=== PATIENT | female | born 1960 | race Caucasian/White ===

== ENCOUNTER → 2017-04-02 | Outpatient (CLI) | payer OTHER ==
--- NOTE | 2017-04-02 15:42 | REPMRS ---
Patient History The patient states she had a clinical breast exam in 04/05 Patient is postmenopausal. Family history of breast cancer in paternal aunt at age 50 or over. Took hormonal contraceptives for 10 years. Digital Woman Screen Mammo: April 02, 2017 - Exam #: [id number] Bilateral CC and MLO view(s) were taken. Technologist: Claudia Roa, Technologist Prior study comparison: March 31, 2016, digital woman screen mammo performed at [facility]. December 29, 2013, bilateral bilat screen digital mammo, performed at [facility] December 03, 2012, bilateral digital mammo screening bilat, performed at [facility]. FINDINGS: There are scattered fibroglandular densities. There has been no change in the appearance of the mammogram from the prior studies. There is a mild amount of scattered fibroglandular density which is fairly symmetric. There is no interval development of dominant mass, architectural distortion, or clustered microcalcification suggestive of malignancy. ASSESSMENT: BI-RADS/ACR category 1 mammogram. Negative. Recommendation Routine screening mammogram in 1 year (for women over age 40). This mammogram was interpreted with the aid of an FDA-approved computer-aided dectection system. Electronically Signed By: Jacob Carrera MD 04/02/17 [id number]
== END ==
LOC: M WHC 14:21
PROVIDERS: ATTEND Obstetrics & Gynecology
DX: Z12.31 Encounter for screening mammogram for malignant neoplasm of breast (principal); Z78.0 Asymptomatic menopausal state; Z92.0 Personal history of contraception

== ENCOUNTER → 2018-02-27 | Outpatient (CLI) | payer OTHER | LOC: M RAD 16:00 | DX: M79.662 Pain in left lower leg (principal) | CPT/HCPCS: 93971 ==

== ENCOUNTER → 2018-04-24 | Outpatient (CLI) | payer OTHER | LOC: M WHC 14:33 | DX: Z12.31 Encounter for screening mammogram for malignant neoplasm of breast (principal); N60.31 Fibrosclerosis of right breast; N60.32 Fibrosclerosis of left breast; Z13.820 Encounter for screening for osteoporosis; M85.851 Other specified disorders of bone density and structure, right thigh; M85.852 Other specified disorders of bone density and structure, left thigh; M85.88 Other specified disorders of bone density and structure, other site | CPT/HCPCS: 77067 ==

== ENCOUNTER → 2019-05-06 | Outpatient (CLI) | payer OTHER ==
--- NOTE | 2019-05-06 16:14 | REPMRS ---
Patient History The patient states she had a clinical breast exam in 03/2019. Family history of breast cancer at age 50 or over in paternal aunt. Took hormonal contraceptives for 10 years. 3D TOMOSYNTHESIS WAS PERFORMED. [facility] for [facility]%. Digital Woman Screen Mammo: May 06, 2019 - Exam #: [id number] Bilateral CC and MLO view(s) were taken. Technologist: Claudia Fields, Technologist Prior study comparison: April 24, 2018, bilateral digital woman screen mammo performed at [facility]. April 02, 2017, digital woman screen mammo performed at [facility]. FINDINGS: The breast tissue is heterogeneously dense. This may lower the sensitivity of mammography. There has been no change in the appearance of the mammogram from the prior studies. There is a moderate amount of residual fibroglandular tissue which is fairly symmetric. There is no interval development of dominant mass, areas of architectural distortion, or clustered microcalcification typical of malignancy. Assessment: BI-RADS/ACR category 1 mammogram. Negative Mammogram. Recommendation Routine screening mammogram in 1 year (for women over age 40). This mammogram was interpreted with the aid of an FDA-approved computer-aided dectection system. Electronically Signed By: Markus Avery MD 05/06/19 [id number]
== END ==
LOC: M WHC 15:36
PROVIDERS: ATTEND Obstetrics & Gynecology
DX: Z12.31 Encounter for screening mammogram for malignant neoplasm of breast (principal); Z80.3 Family history of malignant neoplasm of breast

== ENCOUNTER → 2020-05-31 | Outpatient (CLI) | payer OTHER ==
[~2020-05-31] MED LIST: CITA20TA6 PO; GNP1000C11 PO; ROSU20TA5 PO; VITA50005 PO
[2020-05-31 09:45] LABS: BASO % 0.2 % (0.0-1.0); EOS % 0.5 % (0.0-3.0); HEMATOCRIT 39.3 % (36.0-47.0); HEMOGLOBIN 12.6 g/dl (12.0-15.5); LYMPH # 1.4 10^3/uL (1.5-5.0); LYMPH % 16.4 % (24.0-44.0); MEAN CORPUSCULAR HEMOGLOBIN 30.7 pg (27.0-33.0); MEAN CORPUSCULAR HGB CONC 32.1 g/dl (32.0-36.5); MEAN CORPUSCULAR VOLUME 95.9 fl (80.0-96.0); MONO # 0.6 10^3/uL (0.0-0.8); NEUTROPHILS # 6.4 10^3/uL (1.5-8.5); NEUTROPHILS % 75.5 % (36.0-66.0); PLATELET COUNT, AUTOMATED 226 10^3/uL (150-450); WHITE BLOOD COUNT 8.4 10^3/uL (4.0-10.0)
--- NOTE | 2020-05-31 10:05 | ECGEPIP ---
[facility] Test Date: 2020-05-31 Pat Name: KANIKA MCDONNELL Department: Room: - Gender: Female [employer] Operator: KARINE : 1960 Requested By: Jeremias Gatica Order Number: [id number] Reading MD: Sylvia Herrera Measurements Intervals [place] Rate: 66 P: 16 SC: 135 QRS: 70 QRSD: 91 T: 59 QT: 374 QTc: 392 Interpretive Statements SINUS RHYTHM NONSPECIFIC st T-WAVE ABNORMALITY No prior Electronically Signed on 05-31-2020 10:05:23 EDT by Sylvia Herrera
[2020-05-31 10:14] LABS: ALBUMIN 3.7 GM/DL (3.2-5.2); ALT/SGPT 20 U/L (12-78); BILIRUBIN,TOTAL 0.3 MG/DL (0.2-1.0); BLOOD UREA NITROGEN 11 MG/DL (7-18); CALCIUM LEVEL 8.7 MG/DL (8.5-10.1); CARBON DIOXIDE LEVEL 28 MEQ/L (21-32); CHLORIDE LEVEL 107 MEQ/L (98-107); CREATININE FOR GFR 0.59 MG/DL (0.55-1.30); GLOMERULAR FILTRATION RATE > 60.0 (>51); GLUCOSE, FASTING 92 MG/DL (70-100); POTASSIUM SERUM 3.8 MEQ/L (3.5-5.1); SODIUM LEVEL 142 MEQ/L (136-145); TOTAL PROTEIN 7.3 GM/DL (6.4-8.2)
== END ==
LOC: M LAB 08:43
PROVIDERS: ATTEND Podiatrist
DX: Z01.818 Encounter for other preprocedural examination (principal); M20.11 Hallux valgus (acquired), right foot; M79.671 Pain in right foot; R94.31 Abnormal electrocardiogram [ECG] [EKG]

== ENCOUNTER → 2020-06-06 | Outpatient (CLI) | payer OTHER | LOC: M LABSMTC 10:08 | PROVIDERS: ATTEND Anesthesiology | DX: Z01.812 Encounter for preprocedural laboratory examination (principal); Z20.828 Contact with and (suspected) exposure to other viral communicable diseases | CPT/HCPCS: C9803; U0003 ==

== ENCOUNTER 2020-06-11 08:05 | Day surgery (SDC) | payer OTHER ==
[~2020-06-11] VITALS: Ht 162.6 cm; Wt 69.3 kg
[~2020-06-11 08:05] MED LIST changes: -GNP1000C11 PO; +LR 1,000 ML IV ONE; +ceFAZolin SOD 2 GM in IV 1 EA IV ONE
[2020-06-11] MEDS ORDERED: GNP1000C11 PO (09:17)
[2020-06-11] MEDS ORDERED: propofoL 200 MG/20 ML VIAL As Ordered ONE (09:38)
[2020-06-11] MEDS ORDERED: ONDANSETRON 4MG/2ML VIAL As Ordered ONE (09:38)
[2020-06-11] MEDS ORDERED: LIDOCAINE 2% 100MG/5ML SDV (FOR ANES.) As Ordered ONE (09:38)
[2020-06-11] MEDS ORDERED: MIDAZOLAM INJ 2MG/2ML VIAL (J2250 PER 1MG) As Ordered ONE (09:38)
[2020-06-11] MEDS ORDERED: dexameTHASONE 4 MG/ML 1ML VIAL (J1100 PER 1MG) As Ordered ONE ×2 (09:38→10:04)
[2020-06-11] MEDS ORDERED: fentaNYL 100 MCG/2 ML INJECTION (J3010) As Ordered ONE (09:38)
[2020-06-11] MEDS ORDERED: BACITRACIN PWD 50,000 UNITS VIAL As Ordered ONE (10:04)
[2020-06-11] MEDS ORDERED: LIDOCAINE 2% MDV 20ML VIAL As Ordered ONE (10:04)
[2020-06-11] MEDS ORDERED: BUPIVACAINE HCL 0.5% 30 ML VIAL As Ordered ONE (10:04)
[2020-06-11] MEDS ORDERED: NEOSPORIN GU IRRIG 20 ML VIAL As Ordered ONE (10:04)
[2020-06-11] MEDS ORDERED: KETAMINE HCL 200 MG/20 ML VIAL As Ordered ONE (10:27)
[2020-06-11] MEDS ORDERED: ePHEDrine SULFATE 25 MG/5 ML(5MG/ML) SYRINGE As Ordered ONE (10:41)
[2020-06-11] MEDS ORDERED: ACETAMINOPHEN 1000MG 100ML IV BTL (OFIRMEV) (J0131 PER 10MG) As Ordered ONE (10:47)
[2020-06-11] MEDS ORDERED: KETOROLAC 60MG 2ML VIAL As Ordered ONE (11:29)
[2020-06-11 12:35] VITALS: BP 109/56
--- NOTE | 2020-06-11 12:38 | REP ---
INDICATION: POST OP FOOT CORAL / VIKTOR BUNIONECTOMY ADV RECOVERY RM 5 COMPARISON: None. TECHNIQUE: Portable AP, lateral, bilateral oblique views of the right foot. FINDINGS: Patient is noted to be status post surgical intervention involving the 1st metatarsal and proximal phalangeal bones. Overlying postsurgical changes noted. IMPRESSION: Status post surgical intervention involving the 1st toe. <Electronically signed by Noel Osorio > 06/11/20 [id number]
[2020-06-11] MEDS ORDERED: ONDANSETRON 4MG/2ML VIAL IV PRN (13:00)
[2020-06-11] MEDS ORDERED: oxyCODONE 5MG TAB PO PRN (13:00)
[2020-06-11] MEDS ORDERED: LR 1,000 ML IV SCH (13:00)
[2020-06-11] MEDS ORDERED: METOCLOPRAMIDE INJ 10MG/2ML VIAL (J2765 PER 1) IV PRN (13:00)
--- NOTE | 2020-06-14 08:26 | RO ---
DATE OF OPERATION: 06/11/2020 PREOPERATIVE DIAGNOSIS: Hallux valgus with hallux valgus interphalangeus deformity, right foot. POSTOPERATIVE DIAGNOSIS: Hallux valgus with hallux valgus interphalangeus deformity, right foot. PROCEDURES: * Carl bunionectomy internal screw fixation, right foot. * Declan osteotomy with internal staple fixation 9 x 7 mm, right foot. ANESTHESIA: Local MAC. SURGEON: Jeremias Gatica DPM. EMPLOYEE RELATIONS CONSULTANT: None. HEMOSTASIS: Ankle pneumatic tourniquet at 250 mmHg for 55 minutes. HARDWARE UTILIZED: Arthrex 9 x 7 mm compression staple and a headless compression screw 3.0 x 22 mm cannulated. DESCRIPTION OF PROCEDURE: On 06/11/2020, this 60-year-old white female was taken from the hospital room to the operating room and placed on the operating room table in the supine position. Following the induction of IV sedation, local and regional anesthesia, the right lower extremity was prepped and draped in the usual aseptic manner. The ankle pneumatic tourniquet was rapidly inflated to 250 mmHg. Sterile draping was placed and the following procedures were performed: Double osteotomy, Carl and Declan bunionectomy, internal screw fixation, and staple fixation right foot. Attention was directed to the patients right foot. There was noted to be a hallux valgus deformity with hallux valgus interphalangeus deformity. At this time, an 8 cm incision was placed over the first metatarsophalangeal joint medial to the extensor tendon and ending just proximal to the interphalangeal joint of the hallux. The incision was deepened through the subcutaneous tissue and all crossing venous tributaries were identified, underscored, clamped, cut, ligated, and electrocoagulated as necessary. Linear capsulotomy was performed in the same plane of the original skin incision. Capsular and periosteal structures were then dissected free in one continuous layer dorsal, medial and lateral, thus creating a capsular and periosteal-type envelope. This brought into view the hypertrophied medial eminence of the first metatarsal, which was osteotomized from dorsal to plantar [id number] and extubated from the wound in toto. Attention was directed to the first intermetatarsal space where dissection was carried down to the level of the sesamoid where the conjoined tendon were sharply dissected free from the sesamoid. The wound was flushed with copious amounts of dilute Bacitracin, neomycin and polymyxin based solution. A V-shaped osteotomy was then performed on the first metatarsal head with long plantar and short dorsal wing. Upon creation of this osteotomy, the capital fragment was transposed 30% to 40% of the width of the shaft of first metatarsal and fixated with a headless 3.0 x 22 mm compression screw. The osteotomy was noted to be stable in all three cardinal planes. The redundant cortical spike was then osteotomized from dorsal to plantar [id number] and extubated from the wound. Attention was directed to the medial surface of the hallux where there was noted to be an interphalangeus deformity. At this time on the distal metaphysis of the proximal phalanx, a wedge-shaped osteotomy was performed reducing the interphalangeus deformity. Utilizing the standard technique, a 9 x 7 mm compression staple was placed across the osteotomy and tamped gently into place, reducing the interphalangeal deformity. Intraoperative C-arm images were utilized for visualization of the osteotomies. After the wound was flushed with copious amounts of dilute Bacitracin, neomycin, and polymyxin B solution, attention was directed towards closure where the capsule was coapted and maintained with 2-0 Monocryl in a simple interrupted type fashion. Subcutaneous tissues were coapted and maintained utilizing 3-0 Monocryl in a simple interrupted type fashion. Skin incisions were coapted and maintained utilizing 5-0 Monocryl in a continuous subcuticular type fashion. This was additionally reinforced with Steri-Strips. Attention was directed towards bandages where 4 mg of dexamethasone sodium phosphate was instilled proximal at the surgical site with 1 mL of 0.5% Marcaine, Adaptic, 4 x 4x, Antonio, and Kerlix with an overlying Coban wrap under minimal compression. After the tourniquet was deflated instantaneous capillary filling time was noted in digits one through five of the patients right foot. The patient appeared to have tolerated the procedure well. He was taken from the OR to the recovery room for further monitoring by the anesthesia department. Postoperative instructions were given upon discharge. JACK
== END 2020-06-11 12:40 | disposition home or self-care (01) ==
LOC: M SDC 08:05
PROVIDERS: ATTEND Podiatrist
DX: M20.11 Hallux valgus (acquired), right foot (principal); Z88.8 Allergy status to other drugs, medicaments and biological substances
CPT/HCPCS: 28299; 73630; 76000; 88300; 97116; C1713; J0131; J0690; J1100; J1885; J2250; J2405; J3010

== ENCOUNTER → 2020-08-17 | Outpatient (CLI) | payer OTHER ==
[~2020-08-17] MED LIST changes: +GNP1000C11 PO; -LR 1,000 ML IV ONE; -ceFAZolin SOD 2 GM in IV 1 EA IV ONE
[2020-08-17 16:46] LABS: HEMATOCRIT 39.8 % (36.0-47.0); HEMOGLOBIN 12.5 g/dl (12.0-15.5)
[2020-08-17 17:15] LABS: ALBUMIN 4.2 GM/DL (3.2-5.2); ALT/SGPT 18 U/L (12-78); BILIRUBIN,TOTAL 0.3 MG/DL (0.2-1.0); BLOOD UREA NITROGEN 17 MG/DL (7-18); CALCIUM LEVEL 9.6 MG/DL (8.5-10.1); CARBON DIOXIDE LEVEL 29 MEQ/L (21-32); CHLORIDE LEVEL 104 MEQ/L (98-107); CREATININE FOR GFR 0.76 MG/DL (0.55-1.30); GLOMERULAR FILTRATION RATE > 60.0 (>51); GLUCOSE, FASTING 92 MG/DL (70-100); POTASSIUM SERUM 3.8 MEQ/L (3.5-5.1); SODIUM LEVEL 138 MEQ/L (136-145)
== END ==
LOC: M LAB 16:21
PROVIDERS: ATTEND Podiatrist
DX: Z01.812 Encounter for preprocedural laboratory examination (principal); M79.89 Other specified soft tissue disorders

== ENCOUNTER → 2020-08-29 | Outpatient (CLI) | payer OTHER | LOC: M LABSMTC 10:25 | PROVIDERS: ATTEND Anesthesiology | DX: Z01.812 Encounter for preprocedural laboratory examination (principal); Z20.822 Contact with and (suspected) exposure to COVID-19 ==

== ENCOUNTER 2020-09-03 07:03 | Day surgery (SDC) | payer OTHER ==
[~2020-09-03] VITALS: Ht 165.1 cm; Wt 63.5 kg
[~2020-09-03 07:03] MED LIST changes: +BACITRACIN PWD 50,000 UNITS VIAL As Ordered ONE; +BUPIVACAINE HCL 0.5% 30 ML VIAL As Ordered ONE; +LIDOCAINE 2% MDV 20ML VIAL As Ordered ONE; +LR 1,000 ML IV ONE; +NEOSPORIN GU IRRIG 20 ML VIAL As Ordered ONE; +ceFAZolin SOD 2 GM in IV 1 EA IV ONE; +dexameTHASONE 4 MG/ML 1ML VIAL (J1100 PER 1MG) As Ordered ONE
--- OUTSIDE RECORDS SUMMARY | 2020-09-03 07:06 | CCD ---
Author Author [facility] Address Unknown Phone Unavailable Care Team Providers Care Early Childhood Services Coordinator Name Role Phone KIRSCHMAN, L LUCIA FILTER SCREEN CLEANER Unavailable Unavailable KIRSCHMAN, L LUCIA FILTER SCREEN CLEANER Unavailable Unavailable KIRSCHMAN, L LUCIA FILTER SCREEN CLEANER Unavailable Unavailable KIRSCHMAN, L LUCIA FILTER SCREEN CLEANER Unavailable Unavailable KIRSCHMAN, L LUCIA FILTER SCREEN CLEANER Unavailable Unavailable KIRSCHMAN, L LUCIA FILTER SCREEN CLEANER Unavailable Unavailable KIRSCHMAN, L LUCIA FILTER SCREEN CLEANER Unavailable Unavailable KIRSCHMAN, L LUCIA FILTER SCREEN CLEANER Unavailable Unavailable KIRSCHMAN, L LUCIA FILTER SCREEN CLEANER Unavailable Unavailable KIRSCHMAN, L LUCIA FILTER SCREEN CLEANER Unavailable Unavailable KIRSCHMAN, L LUCIA FILTER SCREEN CLEANER Unavailable Unavailable KIRSCHMAN, L LUCIA FILTER SCREEN CLEANER Unavailable Unavailable KIRSCHMAN, L LUCIA FILTER SCREEN CLEANER Unavailable Unavailable KIRSCHMAN, L LUCIA FILTER SCREEN CLEANER Unavailable Unavailable KIRSCHMAN, L LUCIA FILTER SCREEN CLEANER Unavailable Unavailable KIRSCHMAN, L LUCIA FILTER SCREEN CLEANER Unavailable Unavailable KIRSCHMAN, L LUCIA FILTER SCREEN CLEANER Unavailable Unavailable KIRSCHMAN, L LUCIA FILTER SCREEN CLEANER Unavailable Unavailable KIRSCHMAN, L LUCIA FILTER SCREEN CLEANER Unavailable Unavailable KIRSCHMAN, L LUCIA FILTER SCREEN CLEANER Unavailable Unavailable KIRSCHMAN, L LUCIA FILTER SCREEN CLEANER Unavailable Unavailable KIRSCHMAN, L LUCIA FILTER SCREEN CLEANER Unavailable Unavailable KIRSCHMAN, L LUCIA FILTER SCREEN CLEANER Unavailable Unavailable KIRSCHMAN, L LUCIA FILTER SCREEN CLEANER Unavailable Unavailable KIRSCHMAN, L LUCIA FILTER SCREEN CLEANER Unavailable Unavailable KIRSCHMAN, L LUCIA FILTER SCREEN CLEANER Unavailable Unavailable KIRSCHMAN, L LUCIA FILTER SCREEN CLEANER Unavailable Unavailable KIRSCHMAN, L LUCIA FILTER SCREEN CLEANER Unavailable Unavailable KIRSCHMAN, L LUCIA FILTER SCREEN CLEANER Unavailable Unavailable KIRSCHMAN, L LUCIA FILTER SCREEN CLEANER Unavailable Unavailable KIRSCHMAN, L LUCIA FILTER SCREEN CLEANER Unavailable Unavailable KIRSCHMAN, L LUCIA FILTER SCREEN CLEANER Unavailable Unavailable KIRSCHMAN, L LUCIA FILTER SCREEN CLEANER Unavailable Unavailable KIRSCHMAN, L LUCIA FILTER SCREEN CLEANER Unavailable Unavailable KIRSCHMAN, L LUCIA FILTER SCREEN CLEANER Unavailable Unavailable KIRSCHMAN, L LUCIA FILTER SCREEN CLEANER Unavailable Unavailable KIRSCHMAN, L LUCIA FILTER SCREEN CLEANER Unavailable Unavailable KIRSCHMAN, L LUCIA FILTER SCREEN CLEANER Unavailable Unavailable KIRSCHMAN, L LUCIA FILTER SCREEN CLEANER Unavailable Unavailable KIRSCHMAN, L LUCIA FILTER SCREEN CLEANER Unavailable Unavailable KIRSCHMAN, L LUCIA FILTER SCREEN CLEANER Unavailable Unavailable KIRSCHMAN, L LUCIA FILTER SCREEN CLEANER Unavailable Unavailable KIRSCHMAN, L LUCIA FILTER SCREEN CLEANER Unavailable Unavailable KIRSCHMAN, L LUCIA FILTER SCREEN CLEANER Unavailable Unavailable KIRSCHMAN, L LUCIA FILTER SCREEN CLEANER Unavailable Unavailable KIRSCHMAN, L LUCIA FILTER SCREEN CLEANER Unavailable Unavailable KIRSCHMAN, L LUCIA FILTER SCREEN CLEANER Unavailable Unavailable KIRSCHMAN, L LUCIA FILTER SCREEN CLEANER Unavailable Unavailable KIRSCHMAN, L LUCIA FILTER SCREEN CLEANER Unavailable Unavailable KIRSCHMAN, L LUCIA FILTER SCREEN CLEANER Unavailable Unavailable KIRSCHMAN, L LUCIA FILTER SCREEN CLEANER Unavailable Unavailable TONTARSKI, G OTIS PA Unavailable Unavailable TONTARSKI, G OTIS PA Unavailable Unavailable TONTARSKI, G OTIS PA Unavailable Unavailable TONTARSKI, G OTIS PA Unavailable Unavailable TONTARSKI, G OTIS PA Unavailable Unavailable TONTARSKI, G OTIS PA Unavailable Unavailable TONTARSKI, G OTIS PA Unavailable Unavailable TONTARSKI, G TOIS PA Unavailable Unavailable TONTARSKI, G OTIS PA Unavailable Unavailable TONTARSKI, G OTIS PA Unavailable Unavailable TONTARSKI, G OTIS PA Unavailable Unavailable TONTARSKI, G OTIS PA Unavailable Unavailable TONTARSKI, G OTIS PA Unavailable Unavailable TONTARSKI, G OTIS PA Unavailable Unavailable TONTARSKI, G OTIS PA Unavailable Unavailable TONTARSKI, G OTIS PA Unavailable Unavailable TONTARSKI, G OTIS PA Unavailable Unavailable TONTARSKI, G OTIS PA Unavailable Unavailable TONTARSKI, G OTIS PA Unavailable Unavailable TONTARSKI, G OTIS PA Unavailable Unavailable TONTARSKI, G OTIS PA Unavailable Unavailable TONTARSKI, G OTIS PA Unavailable Unavailable TONTARSKI, G OTIS PA Unavailable Unavailable TONTARSKI, G OTIS PA Unavailable Unavailable TONTARSKI, G OTIS PA Unavailable Unavailable TONTARSKI, G OTIS PA Unavailable Unavailable TONTARSKI, G OTIS PA Unavailable Unavailable TONTARSKI, G OTIS PA Unavailable Unavailable TONTARSKI, G OTIS PA Unavailable Unavailable TONTARSKI, G OTIS PA Unavailable Unavailable TONTARSKI, G OTIS PA Unavailable Unavailable TONTARSKI, G OTIS PA Unavailable Unavailable TONTARSKI, G OTIS PA Unavailable Unavailable TONTARSKI, G OTIS PA Unavailable Unavailable TONTARSKI, G OTIS PA Unavailable Unavailable TONTARSKI, G OTIS PA Unavailable Unavailable TONTARSKI, G OTIS PA Unavailable Unavailable TONTARSKI, G TOIS PA Unavailable Unavailable TONTARSKI, G OTIS PA Unavailable Unavailable TONTARSKI, G OTIS PA Unavailable Unavailable TONTARSKI, G OTIS PA Unavailable Unavailable TONTARSKI, G OTIS PA Unavailable Unavailable TONTARSKI, G OTIS PA Unavailable Unavailable TONTARSKI, G OTIS PA Unavailable Unavailable TONTARSKI, G OTIS PA Unavailable Unavailable TONTARSKI, G OTIS PA Unavailable Unavailable Nikos Patrick MD Unavailable Unavailable Nikos Patrick MD Unavailable Unavailable Nikos Patrick MD Unavailable Unavailable Nikos Patrick MD Unavailable Unavailable Nkios Patrick MD Unavailable Unavailable Nikos Patrick MD Unavailable Unavailable Nikos Patrick MD Unavailable Unavailable Nikos Patrick MD Unavailable Unavailable Nikos Patrick MD Unavailable Unavailable Nikos Patrick MD Unavailable Unavailable Nikos Patrick MD Unavailable Unavailable Nikos Patrick MD Unavailable Unavailable Nikos Patrick MD Unavailable Unavailable Nikos Patrick MD Unavailable Unavailable Nikos Patrick MD Unavailable Unavailable Nikos Patrick MD Unavailable Unavailable Darnell Nodea MIDDLETON Unavailable Unavailable Darnell, Nodea MIDDLETON Unavailable Unavailable Darnell, Nodea MD Unavailable Unavailable Darnell, Nodea MD Unavailable Unavailable Darnell, Nodea MIDDLETON Unavailable Unavailable Darnell, Nodea MD Unavailable Unavailable Darnell, Nodea MD Unavailable Unavailable Darnell, Nodea MD Unavailable Unavailable Darnell, Nodea MD Unavailable Unavailable Darnell Nodea MD Unavailable Unavailable Darnell Nodea MD Unavailable Unavailable Darnell Nodea MIDDLETON Unavailable Unavailable Nikos Patrick MD Unavailable Unavailable KATE MORELAND MD Unavailable Unavailable KATE MORELAND MD Unavailable Unavailable KATE MORELAND MD Unavailable Unavailable KATE MORELANDK Unavailable Unavailable KATE MORELAND MD Unavailable Unavailable KAET MORELAND MD Unavailable Unavailable KATE MORELAND MD Unavailable Unavailable KATE MORELAND MD Unavailable Unavailable KATE MORELAND MD Unavailable Unavailable KATE MORELAND MD Unavailable Unavailable KATE MORELAND MD Unavailable Unavailable KATE MORELAND MD Unavailable Unavailable KATE MORELAND MD Unavailable Unavailable KATE MORELAND MD Unavailable Unavailable KATE MORELAND MD Unavailable Unavailable KATE MORELAND MD Unavailable Unavailable KATE MORELAND MD Unavailable Unavailable KATE MORELANDOOK Unavailable Unavailable KATE MORELAND MD Unavailable Unavailable KATE MORELANDK Unavailable Unavailable KATE MORELAND MD Unavailable Unavailable CRYSTALWAKATE JaramilloK Unavailable Unavailable CRYSTALWAKATE JaramilloOOK MD Unavailable Unavailable CRYSTALWAKATE JaramilloOOK Unavailable Unavailable KATE MORELANDK Unavailable Unavailable KATE MORELANDK Unavailable Unavailable CRYSTALWAKATE JaramilloOOK Unavailable Unavailable CRYSTALWAKATE JaramilloOOK Unavailable Unavailable CRYSTALWAKATE JaramilloOOK Unavailable Unavailable CRYSTALWAKATE JaramilloOOK Unavailable Unavailable CRYSTALWAI, KATE FAROOK MD Unavailable Unavailable KIDWAI, KATE FAROOK MD Unavailable Unavailable KIDWAI, KATE FAROOK MD Unavailable Unavailable KIDWAI, KATE FAROOK MD Unavailable Unavailable KIDWAI, KATE FAROOK MD Unavailable Unavailable KIDWAI, KATE FAROOK MD Unavailable Unavailable KIDWAI, KATE FAROOK MD Unavailable Unavailable KIDWAI, KATE FAROOK MD Unavailable Unavailable KIDWAI, KATE FAROOK MD Unavailable Unavailable KIDWAI, KATE FAROOK MD Unavailable Unavailable KIDWAI, KATE FAROOK MD Unavailable Unavailable KIDWAI, KATE FAROOK MD Unavailable Unavailable KIDWAI, KATE FAROOK MD Unavailable Unavailable Re-disclosure Warning The records that you are about to access may contain information from federally-assisted alcohol or drug abuse programs. If such information is present, then the following federally mandated warning applies: This information has been disclosed to you from records protected by federal confidentiality rules (42 CFR part 2). The federal rules prohibit you from making any further disclosure of this information unless further disclosure is expressly permitted by the written consent of the person to whom it pertains or as otherwise permitted by 42 CFR part 2. A general authorization for the release of medical or other information is NOT sufficient for this purpose. The Federal rules restrict any use of the information to criminally investigate or prosecute any alcohol or drug abuse patient.The records that you are about to access may contain highly sensitive health information, the redisclosure of which is protected by Article 27-F of the [facility] Public Health law. If you continue you may have access to information: Regarding HIV / AIDS; Provided by facilities licensed or operated by the [facility] Office of Mental Health; or Provided by the [facility] Office for People With Developmental Disabilities. If such information is present, then the following [facility] mandated warning applies: This information has been disclosed to you from confidential records which are protected by state law. State law prohibits you from making any further disclosure of this information without the specific written consent of the person to whom it pertains, or as otherwise permitted by law. Any unauthorized further disclosure in violation of state law may result in a fine or assisted sentence or both. A general authorization for the release of medical or other information is NOT sufficient authorization for further disc losure. Encounters Encounter Providers Location Date Indications Data Source(s ) Outpatient Attender: Nikos Patrick MDReferrer: LUCIA CHAPMAN FILTER SCREEN CLEANER EMERGENCY ROOM-[facility] 05/24/2020 04:13:00 PM EDT - 05/24/2020 04:13:00 PM [facility] Outpatient Attender: OTIS MADISON PAReferrer : LUCIA CHAPMAN NP EMERGENCY ROOM-[facility] 04/02/2020 12:13:00 PM EDT - 04/02/2020 12:13:00 PM [facility] Outpatient Attender: OTIS ANDREWeferrer : LUCIA CHAPMAN NP EMERGENCY ROOM-LAB NOT ORDERED BY [facility] 08/02/2019 11:43:00 AM [facility] - 08/02/2019 11:43:00 AM [facility] Outpatient Attender: USAMA MORELAND MDReferrer: MONTSERRAT CHAPMAN NP EMERGENCY ROOM[facility] 02[facility]10/[facility] Prov[facility] Payer name Policy type / Coverage type Policy ID Covered constitution party ID Covered constitution party's relationship to galeano Policy [place] Plan Information [facility] [id number] SP [id number] [facility] [id number] S [id number] [employer] [id number] S [id number] [facility] [id number] S [id number] [employer] [id number] S [id number] [employer] [id number] SP [id number] [employer] COMM SELF [id number] S [id number] [facility] CLAIM ADMIN WORK COMP [id number] SP [id number] OTHER WORKERS COMPENSATION [id number] SP [id number] [employer] U [id number] Self [id number] [employer] PPO P [id number] S [id number] Problems, Conditions, and Diagnoses Code Display Name Description Problem Type Effective Dates Data Source(s) I77.6 Arteritis, unspecified ARTERITIS, UNSPECIFIED Diagnosi s 05/24/2020 04:13:00 PM [facility] E78.2 Mixed hyperlipidemia MIXED HYPERLIPIDEMIA Diagnosis 04/02/2020 12:13:00 PM [facility] I10 Essential (primary) hypertension ESSENTIAL (PRIMARY) H YPERTENSION Diagnosis 04/02/2020 12:13:00 PM [facility] R53.83 Other fatigue OTHER FATIGUE Diagnosis 04/02/2020 12:13:00 PM [facility] E55.9 Vitamin D deficiency, unspecified VITAMIN D DEFI CIENCY, UNSPECIFIED Diagnosis 08/02/2019 11:43:00 AM [facility] Results ID Date Data Source [id number] 08/29/2020 10:00:00 AM EST [facility] Name Value Range Interpretation Code Description Data Diane rce(s) Supporting Document(s) SARS coronavirus 2 RNA Not Detected [facility] [place] This lab was ordered by [facility] and reported by [facility]. ID Date Data Source [id number] 06/06/2020 08:25:00 AM EDT [facility] Name Value Range Interpretation Code Description Data Diane rce(s) Supporting Document(s) SARS coronavirus 2 RNA [facility] This lab was ordered by [facility] and reported by [facility]. ID Date Data Source [id number] 05/24/2020 05:22:00 PM EDT [facility] FAX [phone] Name Value Range Interpretation Code Description Data Diane rce(s) Supporting Document(s) ERYTHROCYTE SEDIMENTATION RATE 23 mm/hr 0-30 [facility] ID Date Data Source [id number] 05/24/2020 04:50:00 PM T [facility] FAX [phone] Name Value Range Interpretation Code Description Data Diane rce(s) Supporting Document(s) C REACTIVE PROTEIN 1.1 mg/L 0.0-3.0 [facility] ID Date Data Source [id number] 04/02/2020 01:17:00 PM EDT [facility] FAX [phone] Name Value Range Interpretation Code Description Data Diane rce(s) Supporting Document(s) CHOLESTEROL 115 mg/dL 0-200 [facility] TRIGLYCERIDES 50 mg/dL 0-150 [facility] LDL CHOLESTEROL 54 mg/dL 0-100 [facility] HDL CHOLESTEROL 51 mg/dL 40-60 [facility] CHOL/HDL RATIO 2.3 0.0-5.0 [facility] ID Date Data Source [id number] 04/02/2020 01:17:00 PM [phone] Name Value Range Interpretation Code Description Data Diane rce(s) Supporting Document(s) GLUCOSE 87 mg/dL 74-106 [facility] BLOOD UREA NITROGEN 16 mg/dL 7-18 [facility] ital CREATININE 0.7 mg/dL 0.6-1.0 [facility] SODIUM 145 mmol/L 136-145 [facility] POTASSIUM 4.8 mmol/L 3.5-5.1 [facility] CHLORIDE 107 mmol/L 98-107 [facility] CO2 33 mmol/L 21-32 H [facility] CALCIUM 9.0 mg/dL 8.5-10.1 [facility] ANION GAP 5.0 mmol/L 5-12 [facility] GLOMERULAR FILTRATION RATE 86 mL/min [facility] GFR IS CALCULATED IN mL/min/1.73m2 ATILIO L FUNCTION: >90MILDLY DECREASED: 60-89MILDY TO MODERATELY DECREASED: 45-59 MODERATELY TO SEVERELY DECREASED: 30-44SEVERELY DECREASED: 15-29RENAL FAILURE: <15 AST 13 U/L 15-37 L [facility] ALT 21 U/L 12-78 [facility] ALKALINE PHOSPHATASE 79 U/L 46-116 [facility] pital TOTAL BILIRUBIN 0.2 mg/dL 0.2-1.0 [facility] TOTAL PROTEIN 7.1 g/dl 6.4-8.2 [facility] ALBUMIN 3.7 gm/dL 3.4-5.0 [facility] ID Date Data Source [id number] 04/02/2020 12:57:00 PM EDT [facility] FAX [phone] Name Value Range Interpretation Code Description Data Diane rce(s) Supporting Document(s) FREE T4 0.94 ng/dL 0.76-1.46 [facility] ID Date Data Source [id number] 04/02/2020 12:57:00 PM EDT [facility] FAX [phone] Name Value Range Interpretation Code Description Data Diane rce(s) Supporting Document(s) TSH 0.90 uIU/mL 0.36-3.74 [facility] ID Date Data Source [id number] 04/02/2020 12:31:00 PM EDT [facility] FAX [phone] Name Value Range Interpretation Code Description Data Diane rce(s) Supporting Document(s) WHITE BLOOD COUNT 6.2 K/mm3 4.0-10.0 [facility] 4.12 M/mm3 4.00-5.50 [facility] l HEMOGLOBIN 12.5 gm/dL 12.0-16.0 [facility] HEMATOCRIT 38.6 % 36.0-48.8 [facility] MEAN CELL VOLUME 93.7 fl 80-96 [facility] MEAN CORPUSCULAR HEMOGLOBIN 30.3 pg 27.0-31.0 [facility] MEAN CORPUSCULAR HGB CONC 32.4 g/dl 32.0-36.0 [facility] RED CELL DISTRIBUTION WIDTH 11.9 % 10.0-14.5 [facility] PLATELET COUNT 222 K/mm3 172-450 [facility] MEAN PLATELET VOLUME 8.8 fl 9.0-13.0 L [facility] pital GRAN % 57.2 % 50-80.0 [facility] IG% 0.2 % 0.0-0.2 [facility] LYMPH % 32.0 % 25.0-50.0 [facility] MONO % 8.5 % 2.0-10.0 [facility] EOS % 1.8 % 0-5.0 [facility] BASO % 0.3 % 0.0-2.0 [facility] GRAN # 3.6 K/mm3 2.0-8.00 [facility] IG# 0.0 K/mm3 0.0-0.2 [facility] LYMPH # 2.0 K/mm3 1.0-5.0 [facility] MONO # 0.5 K/mm3 0.10-1.20 [facility] EOS # 0.1 K/mm3 0.0-0.5 [facility] BASO # 0.0 K/mm3 0.0-0.2 [facility] ID Date Data Source [id number] 08/06/2019 06:18:00 AM EST [facility] Name Value Range Interpretation Code Description Data [facility](s) Supporting Document(s) VITAMIN D, 25-HYDROXY 9.1 ng/mL 30.0-100.0 [facility] Vitamin D deficiency has been defined by the [place] of[employer] and an Endocrine Society practice guideline as alevel of serum 25-OH vitamin D less than 20 ng/mL (1,2).The Endocrine Society went on to further define vitamin Dinsufficiency as a level between 21 and 29 ng/mL (2).1. IOM ([place] of Medicine). 2010. Dietary reference intakes for calcium and D. [place]: The National Academies Press.2. Mari Onofre, Alecia ARREDONDO, et al. Evaluation, treatment, and prevention of vitamin D deficiency: an Endocrine Society clinical practice guideline. JCEM. 2010; 96(7):1911- 30.Performed at: RN - [facility] [address] [id number] Director: Mitra Conway MD, Phone: [phone] ID Date Data Source [id number] 08/06/2019 06:05:00 AM EST [facility] Name Value Range Interpretation Code Description Data Diane rce(s) Supporting Document(s) Vitamin D, 25-Hydroxy 9.1 ng/mL 30.0-100.0 Below low normal [facility] Vitamin D deficiency has been defined by the [place] of[employer] and an Endocrine Society practice guideline as alevel of serum 25-OH vitamin D less than 20 ng/mL (1,2).The Endocrine Society went on to further define vitamin Dinsufficiency as a level between 21 and 29 ng/mL (2).1. IOM ([place] of [employer]). 2010. Dietary reference intakes for calcium and D. [place]: The National Academies Press.2. Mari Onofre, Alecia RAREDONDO, et al. Evaluation, treatment, and prevention of vitamin D deficiency: an Endocrine Society clinical practice guideline. JCEM. 2010; 96(7):191-30. ID Date Data Source [id number] 08/02/2019 12:38:00 PM EST [facility] FAX [phone] Name Value Range Interpretation Code Description Data Diane rce(s) Supporting Document(s) FREE T4 1.14 ng/dL 0.76-1.46 [facility] ID Date Data Source [id number] 08/02/2019 12:38:00 PM EST [facility] FAX [phone] Name Value Range Interpretation Code Description Data Diane rce(s) Supporting Document(s) TSH 0.93 uIU/mL 0.36-3.74 [facility] ID Date Data Source [id number] 08/02/2019 12:33:00 PM EST [facility] FAX [phone] Name Value Range Interpretation Code Description Data Diane rce(s) Supporting Document(s) CREATINE PHOSPHOKINASE 192 U/L 26-192 [facility] ID Date Data Source [id number] 08/02/2019 12:33:00 PM [facility] FAX [phone] Name Value Range Interpretation Code Description Data Diane rce(s) Supporting Document(s) CHOLESTEROL 132 mg/dL 0-200 [facility] TRIGLYCERIDES 71 mg/dL 0-150 [facility] LDL CHOLESTEROL 59 mg/dL 0-100 [facility] HDL CHOLESTEROL 59 mg/dL 40-60 [facility] CHOL/HDL RATIO 2.2 0.0-5.0 [facility] ID Date Data Source [id number] 08/02/2019 12:33:00 PM [facility] FAX [phone] Name Value Range Interpretation Code Description Data Diane rce(s) Supporting Document(s) GLUCOSE 95 mg/dL 74-106 [facility] BLOOD UREA NITROGEN 18 mg/dL 7-18 [facility] ital CREATININE 0.6 mg/dL 0.6-1.0 [facility] SODIUM 142 mmol/L 136-145 [facility] POTASSIUM 4.7 mmol/L 3.5-5.1 [facility] CHLORIDE 103 mmol/L 98-107 [facility] CO2 30 mmol/L 21-32 [facility] CALCIUM 9.5 mg/dL 8.5-10.1 [facility] ANION GAP 9.0 mmol/L 5-12 [facility] GLOMERULAR FILTRATION RATE >90 mL/min [facility] GFR IS CALCULATED IN mL/min/1.73m2 ATILIO L FUNCTION: >90MILDLY DECREASED: 60-89MILDY TO MODERATELY DECREASED: 45-59 MODERATELY TO SEVERELY DECREASED: 30-44SEVERELY DECREASED: 15-29RENAL FAILURE: <15 AST 17 U/L 15-37 [facility] ALT 25 U/L 12-78 [facility] ALKALINE PHOSPHATASE 85 U/L 46-116 [facility] pital TOTAL BILIRUBIN 0.2 mg/dL 0.2-1.0 [facility] TOTAL PROTEIN 7.7 g/dl 6.4-8.2 [facility] ALBUMIN 4.0 gm/dL 3.4-5.0 [facility] ID Date Data Source [id number] 08/02/2019 12:07:00 PM EST [facility] FAX [phone] Name Value Range Interpretation Code Description Data [facility](s) Supporting Document(s) WHITE BLOOD COUNT 7.6 K/mm3 4.0-10.0 [facility] RED BLOOD COUNT 4.36 M/mm3 4.00-5.50 [facility] l HEMOGLOBIN 13.2 gm/dL 12.0-16.0 [facility] HEMATOCRIT 40.5 % 36.0-48.8 [facility] MEAN CELL VOLUME 92.9 fl 80-96 [facility] MEAN CORPUSCULAR HEMOGLOBIN 30.3 pg 27.0-31.0 [facility] MEAN CORPUSCULAR HGB CONC 32.6 g/dl 32.0-36.0 [facility] RED CELL DISTRIBUTION WIDTH 11.6 % 10.0-14.5 [facility] PLATELET COUNT 235 K/mm3 172-450 [facility] MEAN PLATELET VOLUME 9.2 fl 9.0-13.0 [facility] pital GRAN % 64.7 % 50-80.0 [facility] IG% 0.3 % 0.0-0.2 H [facility] LYMPH % 25.9 % 25.0-50.0 [facility] MONO % 7.9 % 2.0-10.0 [facility] EOS % 0.9 % 0-5.0 [facility] BASO % 0.3 % 0.0-2.0 [facility] GRAN # 4.9 K/mm3 2.0-8.00 [facility] IG# 0.0 K/mm3 0.0-0.2 [facility] LYMPH # 2.0 K/mm3 1.0-5.0 [facility] MONO # 0.6 K/mm3 0.10-1.20 [facility] EOS # 0.1 K/mm3 0.0-0.5 [facility] BASO # 0.0 K/mm3 0.0-0.2 [facility] Procedure
[2020-09-03] MEDS ORDERED: propofoL 500 MG/50 ML VIAL As Ordered ONE (08:37)
[2020-09-03] MEDS ORDERED: ONDANSETRON 4MG/2ML VIAL As Ordered ONE (08:37)
[2020-09-03] MEDS ORDERED: LIDOCAINE 2% 100MG/5ML SDV (FOR ANES.) As Ordered ONE (08:37)
[2020-09-03] MEDS ORDERED: dexameTHASONE 4 MG/ML 1ML VIAL (J1100 PER 1MG) As Ordered ONE (08:37)
[2020-09-03] MEDS ORDERED: MIDAZOLAM INJ 2MG/2ML VIAL (J2250 PER 1MG) As Ordered ONE (08:38)
[2020-09-03] MEDS ORDERED: fentaNYL 100 MCG/2 ML INJECTION (J3010) As Ordered ONE (08:38)
[2020-09-03] MEDS ORDERED: PHENYLephrine 500MCG 5ML (100MCG/ML) SYRINGE As Ordered ONE (09:39)
[2020-09-03 10:30] VITALS: BP 117/56
[2020-09-03] MEDS ORDERED: PERCOCET 5MG/325MG TAB PO PRN (11:00)
[2020-09-03] MEDS ORDERED: METOCLOPRAMIDE INJ 10MG/2ML VIAL (J2765 PER 1) IV PRN (11:00)
[2020-09-03] MEDS ORDERED: ONDANSETRON 4MG/2ML VIAL IV PRN (11:00)
[2020-09-03] MEDS ORDERED: fentaNYL 100 MCG/2 ML INJECTION (J3010) IV PRN (11:00)
[2020-09-03] MEDS ORDERED: LR 1,000 ML IV SCH (11:00)
--- NOTE | 2020-09-03 11:08 | REP ---
INDICATION: POST OP. COMPARISON: None. TECHNIQUE: Portable FINDINGS: There has been previous bunionectomy. Postoperative changes seen involving the 1st metatarsal phalangeal joint. The fixation staple and the internally fixing screw do not breach the metatarsophalangeal joint space. The derotational osteotomy site is near anatomical. There is expected postoperative soft tissue swelling. IMPRESSION: As above <Electronically signed by Mp Sanchez > 09/03/20 0044
--- NOTE | 2020-09-03 13:08 | RO ---
OPERATIVE NOTE DATE OF OPERATION: 09/03/2020 PREOPERATIVE DIAGNOSIS: Hallux valgus with metatarsus primus varus; hallux valgus interphalangeus deformity left foot. POSTOPERATIVE DIAGNOSIS: Hallux valgus with metatarsus primus varus; hallux valgus interphalangeus deformity left foot. PROCEDURE PERFORMED: Double osteotomy (Carl bunionectomy with Coral osteotomy) with internal fixation left foot. SURGEON: Jeremias Gatica DPM CONTENT DEVELOPER: None. ANESTHESIA: Local MAC. IRRIGATION: Dilute Bacitracin, Neomycin and Polymyxin B solution. HEMOSTASIS: Ankle pneumatic tourniquet at 225 mmHg for 51 minutes. HARDWARE UTILIZED: Arthrex headless 3.0 x 24 mm screw and Arthrex compression staple 9 mm x 7 mm. DESCRIPTION OF PROCEDURE: On 09/03/2020 this 60-year-old white female was taken from hospital room to operating room and placed on the operating table in the supine position. Following induction of IV sedation and local regional anesthesia the left lower extremity was prepped and draped in usual aseptic manner. Attention was directed to the patient's left foot. There was noted to be a moderate hallux valgus deformity. At this time a 7 cm incision was placed over the 1st metatarsophalangeal joint ending just proximal to the interphalangeal of the hallux. The incision was medial to the extensor tendon. The incision was deepened through subcutaneous tissues and all crossing venous tributaries were identified, underscored, clamped, cut, ligated and electrocoagulated as necessary. Linear capsulotomy was performed in same plane as original skin incision and capsular and periosteal structures were then dissected free in one continuous layer dorsally, medially and laterally thus creating a capsular periosteal type enveloped. This delivered into view the hypertrophied medial eminence which was osteotomized from distal to proximal [id number] exiting medial to the sesamoidal groove with sagittal saw. Attention was directed into the 1st intermetatarsal space where dissection was carried down to the level of fibular sesamoid where conjoined tendon was sharply dissected free from the fibular sesamoid. A V-shaped offset osteotomy was performed of long plantar and short dorsal allowing creation of osteotomy, capital fragment was transposed approximately 30-35% of width of shaft of 1st metatarsal and fixated with 3.0 x 24 mm screw. Initially a longer screw was measured, measuring 32 mm. However, this was found to be into the joint. Therefore, it was removed and an smaller screw was placed with good compression, noted to be stable in all three cardinal planes. The redundant cortical spike was then osteotomized dorsal plantar [id number]. Medial surface was rasped to smooth contour. The wound was flushed with copious amounts of dilute Bacitracin, Neomycin and Polymyxin B solution. Attention was directed to the distal aspect of the incision where the following procedure was performed. CORAL OSTEOTOMY WITH STAPLE FIXATION: Dissection was carried down to the level of the proximal metaphyseal/diaphyseal junction of the proximal phalanx and wedge osteotomy was performed with the base medial and the apex lateral at the proximal metaphyseal junction. A 3 mm wedge of bone was removed utilizing the standard technique and 9 mm x 7 mm compression staple was placed across the osteotomy site and noted to be stable in all three cardinal planes. Intraoperative C-arm imaging revealed good position of the screw as well as staple across the surgical site. The wound was again flushed with copious amounts of dilute Bacitracin, Neomycin and Polymyxin B solution. Attention was directed toward closure where the capsular structures were coapted and maintained using 3-0 Monocryl in simple interrupted type fashion. Subcutaneous tissues were coapted and maintained using 4-0 Monocryl in simple interrupted type fashion. Skin incision was coapted and maintained utilizing 5-0 Monocryl in continuous subcuticular type fashion, this was reinforced with Steri-Strips. Following the completion of the surgical procedure 4 mg of Dexamethasone sodium phosphate was instilled proximal to the surgical site. Attention was directed toward bandaging where sterile compressive bandage was applied consisting of Adaptic, 4 x 4s, 4 x 4 splints, Kerlix and Coban. Ankle pneumatic tourniquet was rapidly deflated. Instantaneous capillary filling time was noted digits 1 through 5 of the patient's left foot. The patient having apparently tolerated the procedure well and was taken from the OR to the recovery room for further monitoring by the anesthesia department. Postoperative instructions were given upon discharge.
== END 2020-09-03 11:15 | disposition home or self-care (01) ==
LOC: M SDC 07:03
PROVIDERS: ATTEND Podiatrist
DX: M20.12 Hallux valgus (acquired), left foot (principal); M79.672 Pain in left foot; E78.5 Hyperlipidemia, unspecified; Z79.899 Other long term (current) drug therapy; Z88.8 Allergy status to other drugs, medicaments and biological substances
CPT/HCPCS: 28299; 73630; 88300; C1713; C1776; J1100; J2250; J2370; J2405; J3010

== ENCOUNTER → 2021-02-18 | Outpatient (CLI) | payer OTHER ==
[~2021-02-18] MED LIST changes: -BACITRACIN PWD 50,000 UNITS VIAL As Ordered ONE; -BUPIVACAINE HCL 0.5% 30 ML VIAL As Ordered ONE; +ERGO500029 PO; -LIDOCAINE 2% MDV 20ML VIAL As Ordered ONE; -LR 1,000 ML IV ONE; -NEOSPORIN GU IRRIG 20 ML VIAL As Ordered ONE; -VITA50005 PO; -ceFAZolin SOD 2 GM in IV 1 EA IV ONE; -dexameTHASONE 4 MG/ML 1ML VIAL (J1100 PER 1MG) As Ordered ONE
--- NOTE | 2021-02-18 16:07 | REPMRS ---
Patient History The patient states she had a clinical breast exam in December 2020. Family history of breast cancer at age 50 or over in paternal aunt. Took hormonal contraceptives for 10 years. Patient states no breast complaints today. Patient has signed MRS History Sheet. Digital Woman Screen Mammo: February 18, 2021 - Exam #: [id number] Bilateral CC and MLO view(s) were taken. Technologist: Carmen Luciano, Technologist Prior study comparison: May 06, 2019, bilateral digital woman screen mammo performed at [facility]. April 24, 2018, bilateral digital woman screen mammo performed at [facility]. April 02, 2017, digital woman screen mammo performed at [facility]. FINDINGS: There are scattered fibroglandular densities. The Volpara volumetric breast density category is:B. There has been no change in the appearance of the mammogram from the prior studies. There is a mild amount of scattered fibroglandular density which is fairly symmetric. There is no interval development of dominant mass, architectural distortion, or grouped microcalcification suggestive of malignancy. 3-D tomosynthesis shows no additional findings. Assessment: BI-RADS/ACR category 1 mammogram. Negative Mammogram. Recommendation Routine screening mammogram of both breasts in 1 year (for women over age 40). This patient's [facility] Lifetime Breast Cancer Risk is estimated at 9.9 %. This mammogram was interpreted with the aid of an FDA-approved computer-aided dectection system. Electronically Signed By: Jacob Carrera MD 02/18/21 [id number]
--- NOTE | 2021-02-18 16:15 | DEXAMM ---
INDICATION: Z13.820. COMPARISON: Most recent comparison study is from April 24, 2018.. TECHNIQUE: Bone density was measured using dual-energy x-ray absorptionmetry (DEXA). FINDINGS: AP SPINE L1-L4 BMD 0.859 g/cm2 Young Adult T-Score -2.7 Age Matched Z-Score -1.6. LT FEMUR, TOTAL BMD 0.817 g/cm2 Young Adult T-Score -1.5 Age Matched Z-Score -0.7. LT NECK BMD 0.752 g/cm2 Young Adult T-Score -2.1 Age Matched Z-Score -0.9. RT FEMUR, TOTAL BMD 0.777 g/cm2 Young Adult T-Score -1.8 Age Matched Z-Score -1.0. RT NECK BMD 0.714 g/cm2 Young Adult T-Score -2.3 Age Matched Z-Score -1.1. IMPRESSION: There is osteoporosis of the spine. There is low bone density of the left hip. There is low bone density of the right hip. The density of the spine has decreased 13.7% since the initial exam on December 24, 2008. The density of the spine decreased 5.2% since most recent exam on April 24, 2018. The density of the left hip has decreased 8.5% since initial exam on December 24, 2008. The density of the left hip has decreased 0.2% since most recent exam on April 24, 2018. The density of the right hip has decreased 7.5% since the initial exam on December 24, 2008. The density of the right hip has decreased 0.9% since the most recent exam on April 24, 2018. FOLLOW-UP: Recommendation for the next bone density exam: 2 years. <Electronically signed by Jacob Carrera > 02/18/21 [id number]
== END ==
LOC: M WHC 15:01
PROVIDERS: ATTEND Obstetrics & Gynecology
DX: Z12.31 Encounter for screening mammogram for malignant neoplasm of breast (principal); Z13.820 Encounter for screening for osteoporosis; Z80.3 Family history of malignant neoplasm of breast; M81.0 Age-related osteoporosis without current pathological fracture; M85.851 Other specified disorders of bone density and structure, right thigh; M85.852 Other specified disorders of bone density and structure, left thigh

== ENCOUNTER → 2022-03-23 | Outpatient (CLI) | payer OTHER | LOC: M WHC 11:20 | PROVIDERS: ATTEND Obstetrics & Gynecology | DX: Z12.31 Encounter for screening mammogram for malignant neoplasm of breast (principal) ==

== ENCOUNTER → 2022-05-03 | Outpatient (CLI) | payer OTHER | LOC: M LAB 16:32 | PROVIDERS: ATTEND Ophthalmology | DX: H15.099 Other scleritis, unspecified eye (principal) ==

== ENCOUNTER → 2023-03-26 | Outpatient (CLI) | payer OTHER ==
[~2023-03-26] MED LIST changes: -ROSU20TA5 PO; +ROSU20TA61 PO
== END ==
LOC: M WHC 14:14
PROVIDERS: ATTEND Obstetrics & Gynecology
DX: Z12.31 Encounter for screening mammogram for malignant neoplasm of breast (principal)

== ENCOUNTER → 2024-03-27 | Outpatient (CLI) | payer OTHER | LOC: M WHC 14:24 | PROVIDERS: ATTEND Obstetrics & Gynecology | DX: Z12.31 Encounter for screening mammogram for malignant neoplasm of breast (principal) ==

== ENCOUNTER → 2025-04-08 | Outpatient (CLI) | payer OTHER ==
[~2025-04-08] MED LIST changes: +DORZ2SOL5 OD; +LIFI1DRO4 OD; -ROSU20TA61 PO; +ROSU20TA86 PO; +XALA0.007 OD
== END ==
LOC: M WHC 13:29
PROVIDERS: ATTEND Obstetrics & Gynecology
DX: Z12.31 Encounter for screening mammogram for malignant neoplasm of breast (principal); Z13.820 Encounter for screening for osteoporosis; R92.323 Mammographic fibroglandular density, bilateral breasts; M81.0 Age-related osteoporosis without current pathological fracture; M85.852 Other specified disorders of bone density and structure, left thigh